=== PATIENT | female | born 1990 | race Asian ===

== ENCOUNTER 2023-09-28 01:42 | Inpatient (IN) | payer OTHER ==
[2023-09-28 02:16] VITALS: BMI 26.2
[2023-09-28] MEDS ORDERED: Tranexamic Acid 1,000 MG/10 ML VIAL IVP PRN (02:41)
[2023-09-28] MEDS ORDERED: Misoprostol 200 MCG TAB PR PRN (02:41)
[2023-09-28] MEDS ORDERED: Ibuprofen 800 MG TAB PO PRN (02:41)
[2023-09-28] MEDS ORDERED: Carboprost 250 MCG/ML AMP IM PRN (02:41)
[2023-09-28] MEDS ORDERED: hydrALAZINE 20 MG/ML VIAL SLOW IVP PRN ×2 (02:41→21:06)
[2023-09-28] MEDS ORDERED: Acetaminophen 500 MG TAB PO PRN ×2 (02:41→21:06)
[2023-09-28] MEDS ORDERED: Lidocaine 1% (PF) 30 ML VIAL SC PRN (02:41)
[2023-09-28] MEDS ORDERED: Butorphanol Tartrate 1 MG/ML VIAL SLOW IVP PRN (02:41)
[2023-09-28] MEDS ORDERED: Promethazine HCl 25 MG/ML VIAL IM PRN ×2 (02:41→07:23)
[2023-09-28] MEDS ORDERED: Ondansetron PF 4 MG/2 ML Vial IVP PRN ×3 (02:41→21:06)
[2023-09-28] MEDS ORDERED: Methylergonovine 0.2 MG/ML VIAL IM PRN (02:41)
[2023-09-28] MEDS ORDERED: Diphenoxylate HCl/Atropine Tablet PO PRN ×2 (02:41)
[2023-09-28] MEDS ORDERED: Oxytocin 30 units/NS 500 ML 500 ML IV SCH ×2 (02:45)
[2023-09-28] MEDS: Lactated Ringer's 1,000 ML IV SCH ×3 (03:00→19:08)
[2023-09-28 03:26] LABS: Hematocrit 36.8 % (34.9-44.5); Hemoglobin 12.5 g/dL (12.0-15.5); Mean Corpuscular Hemoglobin 29.4 pg (27.0-33.0); Mean Corpuscular Volume 86.6 fl (81.6-98.3); Mean Platelet Volume 10.9 fl (7.4-10.4); Platelet Count 285 10x3/uL (150-450); RBC Distribution Width 12.3 % (11.5-14.5); Red Blood Cell (RBC) Count 4.25 10x6/uL (3.90-5.03); White Blood Cell (WBC) Count 11.4 10x3/uL (3.5-10.5)
[2023-09-28] MEDS: Misoprostol 100 MCG TAB PO SCH ×2 (03:34→08:38)
[2023-09-28 03:54] LABS: HBSAg Index 0.21 S/CO (0-0.99); Hep B Surf Ag - L&D Non-Reactive S/CO (NonReactive); Syphilis Antibody Nonreactive (Nonreactive); Syphilis Antibody Index 0.05 S/CO (<1.00 Non-Reactive)
[2023-09-28] MEDS ORDERED: fentaNYL/Ropivacaine Epidural 100 ML ONE ×2 (06:30→17:18)
[2023-09-28] MEDS ORDERED: Lactated Ringer's 500 ML IV PRN (07:23)
[2023-09-28] MEDS ORDERED: Naloxone HCl 0.4 mg/ml Vial IVP PRN ×2 (07:23)
[2023-09-28] MEDS ORDERED: ePHEDrine Sulfate 50 MG/10 ML VIAL SLOW IVP PRN (07:23)
[2023-09-28] MEDS ORDERED: diphenhydrAMINE 50 MG/ML VIAL IVP PRN (07:23)
[2023-09-28] MEDS ORDERED: Moisturizing Cream (Eucerin) 113 GM JAR TOP PRN (07:23)
[2023-09-28] MEDS ORDERED: Acetaminophen 325 MG TAB PO PRN (07:23)
[2023-09-28] MEDS ORDERED: Communication Order-Pharmacy FS SCH (07:30)
[2023-09-28] MEDS ORDERED: fentaNYL 2 mcg/Ropivacaine 0.2% Epidural 100 ML CADD EPIDURAL SCH (07:30)
[2023-09-28] MEDS ORDERED: Prenatal Vitamin 1 TAB PO SCH (09:00)
[2023-09-28] MEDS ORDERED: Benzocaine-Menthol 82.5 ML CAN TOP PRN (21:06)
[2023-09-28] MEDS ORDERED: Boostrix 0.5 ML (Tdap) VIAL (>/=7 yrs of age) IM ONE (21:06)
[2023-09-28] MEDS ORDERED: Preparation H Ointment 28 GM TUBE PR PRN (21:06)
[2023-09-28] MEDS ORDERED: Milk Of Magnesia 30 ML UDCUP PO PRN (21:06)
[2023-09-28] MEDS ORDERED: diphenhydrAMINE 25 MG CAP PO PRN (21:06)
[2023-09-28] MEDS ORDERED: Bisacodyl 10 MG SUPP PR PRN (21:06)
[2023-09-28] MEDS ORDERED: Lanolin Ointment 7 GM TUBE TOP PRN (21:06)
[2023-09-28] MEDS ORDERED: Docusate 100 MG CAP PO SCH (21:15)
[2023-09-29] MEDS: Ibuprofen 800 MG TAB PO SCH ×3 (05:27→21:21)
[2023-09-29] MEDS: Ferrous Sulfate 325 MG TAB PO SCH ×2 (08:35→15:53)
[2023-09-29] MEDS: Prenatal Vitamin 1 TAB PO SCH (08:55)
[2023-09-29] MEDS: Docusate 100 MG CAP PO SCH ×2 (08:55→21:21)
[2023-09-29] MEDS ORDERED: Polyethylene Glycol 3350 17 GM Packet PO SCH (10:45)
[2023-09-29] MEDS: Polyethylene Glycol 3350 17 GM Packet PO SCH (10:53)
[2023-09-30] MEDS: Ibuprofen 800 MG TAB PO SCH ×2 (05:22→13:01)
[2023-09-30] MEDS: Ferrous Sulfate 325 MG TAB PO SCH (07:35)
[2023-09-30 07:59] VITALS: BP 122/82; TEMP 97.9
[2023-09-30] MEDS: Polyethylene Glycol 3350 17 GM Packet PO SCH (07:59)
[2023-09-30] MEDS: Prenatal Vitamin 1 TAB PO SCH (08:00)
[2023-09-30] MEDS: Docusate 100 MG CAP PO SCH (08:00)
== END 2023-09-30 15:00 | disposition home or self-care (01) | DRG 806 ==
LOC: CSHLD/OP 01:42 → CSHLD 02:33 → CSHPP 21:19
PROVIDERS: ADMIT Family Medicine; ATTEND Family Medicine
PROC: 10E0XZZ Delivery of Products of Conception, External Approach (ICD-10-PCS; principal; 2023-09-28)
PROC: 0KQM0ZZ Repair Perineum Muscle, Open Approach (ICD-10-PCS; 2023-09-28)
PROC: 3E033XZ Introduction of Vasopressor into Peripheral Vein, Percutaneous Approach (ICD-10-PCS; 2023-09-28)
PROC: 3E0DXGC Introduction of Other Therapeutic Substance into Mouth and Pharynx, External Approach (ICD-10-PCS; 2023-09-28)
DX: O42.02 Full-term premature rupture of membranes, onset of labor within 24 hours of rupture (principal); F33.9 Major depressive disorder, recurrent, unspecified; Z37.0 Single live birth; O99.344 Other mental disorders complicating childbirth; O70.1 Second degree perineal laceration during delivery; Z3A.38 38 weeks gestation of pregnancy
CPT/HCPCS: 85027; 86780; 86850; 86900; 86901; 87340; J2590; J7120